=== PATIENT | male | born 1975 | race Caucasian/White ===

== ENCOUNTER → 2019-09-28 12:22 | Outpatient (CLI) | payer MEDICARE, SELFPAY ==
--- NOTE | ~2019-09-28 | MR_ITS ---
EXAMINATION: MR chest wo/w con DATE: 09/28/2019 14:05 INDICATION: Left supraclavicular soft tissue sarcoma. TECHNIQUE: Magnetic resonance imaging (MRI) of the chest was performed without and with 20 mL MultiHa nce intravenous contrast. Sequences included axial T1-weighted FS FSE and axial, coronal, and sagitta l T1-weighted FSE, T2-weighted FS FSE, and postcontrast T1-weighted FS FSE. COMPARISON: MRI 01/22/2019, 08/20/2016 FINDINGS: There is artifact from surgical changes in left supraclavicular region. There is no recurre nt mass. In the left axilla, there is a 3.2 x 2.3 x 7.8 cm spiculated mass. IMPRESSION: 1. Mass in left axilla, which may be surgical change from the interval lymph node resection. Residual or recurrent malignancy at this site cannot be excluded. Correlate with pathology results from the e xcisional lymph node biopsy. Reviewed, dictated and finalized at location A. IMPRESSION: 1. Mass in left axilla, which may be surgical change from the interval lymph no de resection. Residual or recurrent malignancy at this site cannot be excluded. Correlate with pathology results from the excisional lymph node biopsy.
[2019-09-28 12:51] LABS: Estimated Glomerular Filt Rate > 60
== END ==
DX: C49.9 Malignant neoplasm of connective and soft tissue, unspecified (principal)
CPT/HCPCS: 36415; 71552; A9577

== ENCOUNTER → 2020-05-25 09:31 | Outpatient (CLI) | payer MEDICARE, SELFPAY ==
--- NOTE | ~2020-05-25 | MR_ITS ---
EXAMINATION: MR chest wo/w con DATE: 05/25/2020 10:57 INDICATION: Left supraclavicular soft tissue sarcoma TECHNIQUE: Magnetic resonance imaging (MRI) of the chest was performed without intravenous contrast. Sequences included full-field of the chest axial T1-weighted FSE, T2-weighted FS FSE and postcontrast T1-weighted FS FSE and smaller field of view of the chest centered at the left supraclavicular regio n with axial, sagittal and coronal coronal T1-weighted FSE and T2-weighted FS FSE, axial T1-weighted FS FSE and postcontrast axial T1-weighted FS FSE. COMPARISON: 09/28/2019 FINDINGS: Postoperative changes at the left supraclavicular and axillary regions with several foci of susceptib ility artifact related to surgical clips. No abnormal nodules or enhancement in the region of the myrna gical clips to suggest a local recurrence. Interval decrease in size of an elongated spiculated mass at the left axilla previously measuring 8.9 x 2.2 x 3.5 cm with corresponding dimensions on the curre nt study of 7.4 x 1.4 x 3.1 cm. This is located at the site of an earlier enlarging nodule which was suspicious for a metastatic lymph node. Anterior to the spiculated mass a small region of skin thicke sp with second smaller 2.4 x 2.1 x 2.0 cm spiculated subcutaneous nodule which measured 2.1 x 2.0 x 2.3 cm. The currently decreasing spiculated mass and unchanged more anterior subcutaneous nodule lik teo represent residual scarring post excisional biopsy. Correlate with pathology from the likely exci sed nodule. No new or enlarging masses or lymphadenopathy in the visualized neck or upper thorax. Nor mal bone marrow signal throughout. Central venous port catheter in the subcutaneous tissues in the ri ght pectoral region. IMPRESSION: 1. Decrease in size of a spiculated mass at the left axilla at the site of a prior enlarging nodule l ikely representing change of excisional biopsy with resolution of postoperative scarring. Correlate w ith pathology from the likely excised nodule. 2. Unchanged more anterior small left pectoral subcutaneous nodule also likely scarring related to pr ior surgery. 3. No new or enlarging soft tissue nodules or lymphadenopathy to suggest recurrent disease. Reviewed, dictated and finalized at location B. IMPRESSION: 1. Decrease in size of a spiculated mass at the left axilla at the site of a pr ior enlarging nodule likely representing change of excisional biopsy with resol ution of postoperative scarring. Correlate with pathology from the likely excis ed nodule. 2. Unchanged more anterior small left pectoral subcutaneous nodule also likely scarring related to prior surgery. 3. No new or enlarging soft tissue nodules or lymphadenopathy to suggest recurr ent disease.
[2020-05-25 10:14] LABS: Estimated Glomerular Filt Rate > 60
== END ==
PROVIDERS: Visit Provider Internal Medicine Hematology & Oncology
DX: C49.9 Malignant neoplasm of connective and soft tissue, unspecified (principal)
CPT/HCPCS: 71552; A9577

== ENCOUNTER → 2020-11-23 09:48 | Outpatient (CLI) | payer MEDICARE, SELFPAY ==
--- NOTE | ~2020-11-23 | MR_ITS ---
EXAMINATION: MR chest wo/w con DATE: 11/23/2020 15:09 INDICATION: Soft tissue sarcoma TECHNIQUE: Magnetic resonance imaging (MRI) of the left chest was performed without and with 20 mL Mu ltihance intravenous contrast. Sequences included full-field axial images of the chest with T1-weigh tyler FSE, axial T2-weighted FS FSE. Small field of view of the left chest and shoulder included axial and sagittal and coronal T1-weighted FSE and T2-weighted FS FSE. Dose contrast large and small field- of-view axial T1-weighted FS FSE were also obtained. COMPARISON: 05/25/2020, 09/28/2019 and 01/22/2019 FINDINGS: Postoperative changes at the left supraclavicular and axillary regions with several foci of susceptib ility artifact related to surgical clips. No abnormal nodules or enhancement in the region of the myrna gical clips to suggest a local recurrence. No significant change attending for differences in positio n in an elongated spiculated mass at the left axilla previously measuring 7.4 x 1.4 x 3.1 cm with cor responding dimensions on the current study of 7.3 x 1.5 x 2.8 cm. This is located at the site of an e arlier enlarging nodule which was suspicious for a metastatic lymph node. No significant change atten ding for differences in technique in a second more anterior spiculated subcutaneous mass with overlyi ng skin thickening at the lateral left pectoral region which currently measures 2.8 x 2.0 x 1.6 cm wi th prior corresponding measurements of 2.5 x 2.3 x 1.5 cm. Both of these lesions likely represent res idual scarring post excisional biopsy. Correlate with pathology from the likely excised nodule. No ne w or enlarging masses or lymphadenopathy in the visualized neck or upper thorax. Normal bone marrow s ignal throughout. Central venous port catheter in the subcutaneous tissues in the right pectoral ashley on. There is feathery muscular edema and enhancement within the infraspinatus muscle belly centered a long the myotendinous junction where there appears be a partial-thickness tear. IMPRESSION: 1. Stable appearance of spiculated appearing likely postoperative scarring from prior excisional biop sy at the left axilla and at the subcutaneous left pectoral region. No new or enlarging soft tissue n odules or lymphadenopathy to suggest recurrent disease. 2. Moderate grade left infraspinatus muscle strain/partial tear along the myotendinous junction. Reviewed, dictated and finalized at location A. IMPRESSION: 1. Stable appearance of spiculated appearing likely postoperative scarring from prior excisional biopsy at the left axilla and at the subcutaneous left pector al region. No new or enlarging soft tissue nodules or lymphadenopathy to sugges t recurrent disease. 2. Moderate grade left infraspinatus muscle strain/partial tear along the myote ndinous junction.
[2020-11-24 14:38] LABS: Estimated Glomerular Filt Rate > 60
== END ==
PROVIDERS: PCP Internal Medicine Hematology & Oncology; Visit Provider Internal Medicine Hematology & Oncology
DX: C49.9 Malignant neoplasm of connective and soft tissue, unspecified (principal)
CPT/HCPCS: 71552; A9577

== ENCOUNTER → 2021-11-20 13:21 | Outpatient (CLI) | payer MEDICARE, SELFPAY ==
--- NOTE | ~2021-11-20 | MR_ITS ---
EXAMINATION: MR chest wo/w con DATE: 11/20/2021 14:31 INDICATION: Soft tissue sarcoma. TECHNIQUE: Magnetic resonance imaging (MRI) of the chest was performed without and with 20 mL MultiHa nce intravenous contrast. COMPARISON: Chest MRI 11/23/2020, 08/20/2016 FINDINGS: There is stable scarring in left axilla. There are no pathologically enlarged lymph nodes. The muscles are normal. There is a right chest port. IMPRESSION: 1. No specific evidence of residual or recurrent malignancy. Reviewed, dictated and finalized at location A.
== END ==
PROVIDERS: PCP Family Medicine
DX: C49.9 Malignant neoplasm of connective and soft tissue, unspecified (principal)
CPT/HCPCS: 71552; A9577

== ENCOUNTER → 2022-07-02 10:53 | Outpatient (CLI) | payer MEDICARE, SELFPAY ==
--- NOTE | 2022-07-02 10:56 | MR_ITS ---
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 Portions of the region of concern are excluded from the lpqrp-do-vkko in the MRI was repeated with an additional 20 mL MultiHance intravenous contrast on 07/04/2022. Sequences for both the initial imaging and repeat imaging 2 days prior included large jskaj-gs-tfnp axial T1-weighted FSE and fluid sensitive FSE STIR, small sfsnn-mq-zuqa centered at the left axilla with axial T1-weighted FS FSE, axial, sagittal and coronal T1-weighted FSE and fluid sensitive FSE STIR and post contrast axial, sagittal and coronal T1-weighted FS FSE were also obtained. Additional large qtjsh-tx-kvsu postcontrast axial T1-weighted FS FSE was also obtained. COMPARISON: 11/20/2021 and 09/28/2019 FINDINGS: No significant interval change since 09/28/2019 in a 2.8 x 2.1 x 1.6 cm low T1 and high T2 signal spiculated subcutaneous lesion with overlying skin thickening at the lateral left pectoral region consistent with surgical scarring at the site of a prior reported surgical resection. There is feathery non-masslike enhancement associated with the lesion without a more nodular enhancing soft tissue component. No significant interval change in a thin lenticular region of scarring located more posteriorly and laterally at the left axilla which appears longer and thinner than on the prior studies likely reflecting architectural distortion related to differences in arm positioning. Despite best efforts on repeat imaging and due to patient body habitus, the lateral most margin of the left axillary region of scarring remains excluded from the pohfl-tk-awtg on the repeat imaging. The lesion measures 8.1 cm in craniocaudal length, 4.1 cm medial to lateral and 8 mm in maximal AP thickness. There is a 6-7 mm enhancing nodule located along the anterior margin of but from the region of scarring by a thin intervening fat plane. This is unchanged since earlier study dated 05/25/2020 and likely represents a normal lymph node. Small foci of susceptibility artifact extending from the left infraclavicular region to the lateral margin of the left subpectoral region which are likely related to an earlier surgery for resection of a reported soft tissue sarcoma. No pathologically enlarged or enlarging lymphadenopathy or new enhancing soft tissue nodules to suggest residual, recurrent or metastatic disease. Arthritic changes with associated small effusions at the bilateral glenohumeral joints. There is fluid and enhancing synovitis extending along the bilateral long head biceps tendon sheaths. Right internal jugular central venous port catheter. Heart size is normal. No pericardial or pleural effusion. IMPRESSION: 1. Stable appearance of left infraclavicular postoperative changes and small lenticular region of scarring at left axilla with no evident residual, recurrent or metastatic disease. 2. Due to patient body habitus, the lateral most margin of the region of scarring at the left axilla extensive slightly beyond the [id number]-dg-tzwl. This includes on repeat imaging with best attempt made to center of interest within the available [id number]-vr-[id number]. 3. No interval change since 09/28/2019 in a small region of superficial non masslike enhancement in the left pectoral region with overlying skin thickening. Location appearance suggests asymmetric gynecomastia with skin thickening potentially related to prior radiation treatment. Reviewed, dictated and finalized at location A. Dictated By: Winston Escobedo MD 07/04/22 1433 Signed By: <Electronicall
== END ==
PROVIDERS: PCP Family Medicine
DX: C49.3 Malignant neoplasm of connective and soft tissue of thorax (principal); Z98.890 Other specified postprocedural states
CPT/HCPCS: 99199; 71552; A9577

== ENCOUNTER → 2022-07-04 11:48 | Outpatient (CLI) | payer MEDICARE, SELFPAY ==
--- NOTE | ~2022-07-04 | MR_ITS ---
EXAMINATION: MR chest wo/w con DATE: 07/04/2022 13:01 INDICATION: Sarcoma of the soft tissues of the chest TECHNIQUE: Magnetic resonance imaging (MRI) of the left chest was performed without and with 20 mL Mu ltihance intravenous contrast on 07/02/2022. Portions of the region of concern are excluded from the f eray-fu-nsxl in the MRI was repeated with an additional 20 mL MultiHance intravenous contrast on 07/04. Sequences for both the initial imaging and repeat imaging 2 days prior included large field-of -view axial T1-weighted FSE and fluid sensitive FSE STIR, small yyjze-oh-ljmw centered at the left ax illa with axial T1-weighted FS FSE, axial, sagittal and coronal T1-weighted FSE and fluid sensitive F SE STIR and post contrast axial, sagittal and coronal T1-weighted FS FSE were also obtained. Addition al large bvvoc-wo-tlbr postcontrast axial T1-weighted FS FSE was also obtained. COMPARISON: 11/20/2021 and 09/28/2019 FINDINGS: No significant interval change since 09/28/2019 in a 2.8 x 2.1 x 1.6 cm low T1 and high T2 signal spic ulated subcutaneous lesion with overlying skin thickening at the lateral left pectoral region consist ent with surgical scarring at the site of a prior reported surgical resection. There is feathery non- masslike enhancement associated with the lesion without a more nodular enhancing soft tissue componen t. No significant interval change in a thin lenticular region of scarring located more posteriorly and l aterally at the left axilla which appears longer and thinner than on the prior studies likely reflect ing architectural distortion related to differences in arm positioning. Despite best efforts on repea t imaging and due to patient body habitus, the lateral most margin of the left axillary region of sca rring remains excluded from the ipukh-hv-xlmv on the repeat imaging. The lesion measures 8.1 cm in cr aniocaudal length, 4.1 cm medial to lateral and 8 mm in maximal AP thickness. There is a 6-7 mm enhan cing nodule located along the anterior margin of but from the region of scarring by a thin intervening fat plane. This is unchanged since earlier study dated 05/25/2020 and likely represents a normal lymph node. Small foci of susceptibility artifact extending from the left infraclavicular ashley on to the lateral margin of the left subpectoral region which are likely related to an earlier surger y for resection of a reported soft tissue sarcoma. No pathologically enlarged or enlarging lymphadeno nick or new enhancing soft tissue nodules to suggest residual, recurrent or metastatic disease. Arth ritic changes with associated small effusions at the bilateral glenohumeral joints. There is fluid an d enhancing synovitis extending along the bilateral long head biceps tendon sheaths. Right internal j ugular central venous port catheter. Heart size is normal. No pericardial or pleural effusion. IMPRESSION: 1. Stable appearance of left infraclavicular postoperative changes and small lenticular region of sca rring at left axilla with no evident residual, recurrent or metastatic disease. 2. Due to patient body habitus, the lateral most margin of the region of scarring at the left axilla extensive slightly beyond the zucgm-by-sxyt. This includes on repeat imaging with best attempt made t o center of interest within the available [id number]. 3. No interval change since 09/28/2019 in a small region of superficial non masslike enhancement in th e left pectoral region with overlying skin thickening. Location appearance suggests asymmetric gyneco mastia with skin thickening potentially related to prior radiation treatment. Reviewed, dictated and finalized at location A. IMPRESSION: 1. Stable appearance of left infraclavicular postoperative changes and small le nticular region of scarring at
== END ==
PROVIDERS: PCP Family Medicine
DX: C44.509 Unspecified malignant neoplasm of skin of other part of trunk (principal)
CPT/HCPCS: 71552; A9577